=== PATIENT | male | born 1935 | race Caucasian/White ===

== ENCOUNTER 2017-04-22 00:16 | Day surgery (SDC) | payer MEDICARE, BC ==
[~2017-04-22 00:16] MED LIST: ALBU3IS INH; ASPI81CH PT; BISA10S PR; Docu Liqui50 MG/5 ML PT; Duoneb 2.5-0.5 M3 ML INH; Lotrel 10-20 M1 EACH PO; METO25 PT; PANT40 PO; Pravachol40 MG PO; TAMS.4ER PO
[2017-04-22] MEDS ORDERED: DOXA2 PT (12:11)
[2017-04-22] MEDS ORDERED: Amlodipine-Ben1 EAC1 PT (12:13)
[2017-04-22] MEDS ORDERED: Pravachol40 MG PT (12:14)
[2017-04-22] MEDS ORDERED: Zantac150 MG PT (12:16)
== END 2017-04-22 11:55 | disposition home or self-care (01) ==
LOC: ATC 00:16
DX: C61 Malignant neoplasm of prostate (principal); R33.9 Retention of urine, unspecified; I10 Essential (primary) hypertension; E78.5 Hyperlipidemia, unspecified; C32.9 Malignant neoplasm of larynx, unspecified
CPT/HCPCS: 51702; J1580

== ENCOUNTER 2017-05-23 10:00 | Day surgery (SDC) | payer MEDICARE, BC ==
[~2017-05-23 10:00] MED LIST changes: +Amlodipine-Ben1 EAC1 PT; +DOXA2 PT; +Pravachol40 MG PT; +Zantac150 MG PT
== END 2017-05-23 11:00 | disposition home or self-care (01) ==
LOC: ATC 10:00
DX: R33.9 Retention of urine, unspecified (principal); I10 Essential (primary) hypertension; E78.5 Hyperlipidemia, unspecified; I25.10 Atherosclerotic heart disease of native coronary artery without angina pectoris; C61 Malignant neoplasm of prostate; C32.9 Malignant neoplasm of larynx, unspecified
CPT/HCPCS: 51702

== ENCOUNTER → 2017-05-27 | Outpatient (CLI) | payer MEDICARE, BC | END | disposition home or self-care (01) | LOC: LAB 15:18 → LAB SHORT 15:18 | DX: Z48.813 Encounter for surgical aftercare following surgery on the respiratory system (principal); Z93.0 Tracheostomy status | CPT/HCPCS: 87070 ==

== ENCOUNTER 2017-06-19 00:02 | Emergency (ER) | payer MEDICARE, BC ==
[~2017-06-19] VITALS: Ht 182.9 cm; Wt 90.7 kg
[2017-06-19 00:22] LABS: BASOPHILS ABSOLUTE AUTO 0.03 K/mm3 (0.00-0.23); BASOPHILS PERCENT AUTO 0 % (0-2); EOSINOPHILS ABSOLUTE AUTO 0.08 K/mm3 (0.00-0.68); EOSINOPHILS PERCENT AUTO 1 % (0-6); Hematocrit 33.8 % (37.0-53.0); Hemoglobin 10.6 g/dL (13.5-17.5); IMMATURE GRAN ABSOLUTE AUTO 0.08 K/mm3 (0.00-0.10); IMMATURE GRAN PERCENT AUTO 1 % (0-1); LYMPHOCYTES ABSOLUTE AUTO 0.69 K/mm3 (0.84-5.20); LYMPHOCYTES PERCENT AUTO 8 % (21-46); MONOCYTES ABSOLUTE AUTO 1.06 K/mm3 (0.16-1.47); MONOCYTES PERCENT AUTO 12 % (4-13); Mean Corpuscular HGB Conc 31.4 g/dL (31.5-36.5); Mean Corpuscular Volume 86 fL (80-100); Mean Platelet Volume 8.6 fL (9.1-12.4); NEUTROPHILS ABSOLUTE AUTO 7.22 K/mm3 (1.96-9.15); NEUTROPHILS PERCENT AUTO 79 % (41-73); Platelet Count 300 K/mm3 (150-400); RDW Coefficient Variation 17.3 % (11.7-14.2); RDW Standard Deviation 54.3 fL (35.1-46.3); Red Blood Cell Count 3.92 M/mm3 (4.30-5.90); White Blood Cell Count 9.16 K/mm3 (4.00-11.30)
[2017-06-19 00:42] LABS: Alanine Aminotransfer (ALT/SGP 29 U/L (12-78); Albumin, Blood 2.7 g/dL (3.4-5.0); Albumin/Globulin Ratio 0.6 (0.8-1.8); Alk Phos 82 U/L (50-136); Anion Gap 7 mmol/L (6-16); Aspartate Aminotrans (AST/SGOT 21 U/L (12-37); Bilirubin, Total 0.3 mg/dL (0.1-1.0); Blood Urea Nitrogen 20 mg/dL (8-24); Bun/Creatinine Ratio 31.5 (12.0-20.0); CO2, Blood 32 mmol/L (21-32); Calcium, Blood 9.1 mg/dL (8.5-10.1); Chloride, Blood 95 mmol/L (98-108); Creatinine, Blood 0.64 mg/dL (0.60-1.20); Globulin, Blood 4.8 g/dL (2.2-4.0); Glomerular Filtration Rate >60 (60-); Glucose, Blood 144 mg/dL (70-99); Potassium, Blood 3.9 mmol/L (3.5-5.5); Sodium, Blood 134 mmol/L (136-145); Total Protein, Blood 7.5 g/dL (6.4-8.2); Troponin I <0.015 ng/mL (0.000-0.040)
== END 2017-06-19 02:05 | disposition home or self-care (01) ==
LOC: ER 00:02
PROVIDERS: Emergency Medicine
DX: J95.03 Malfunction of tracheostomy stoma (principal); Z90.02 Acquired absence of larynx; Z79.899 Other long term (current) drug therapy; Z79.82 Long term (current) use of aspirin; Z87.891 Personal history of nicotine dependence
CPT/HCPCS: 31720; 36415; 71046; 80053; 84484; 85025; 94640; 96374; 99283; J2930

== ENCOUNTER 2017-06-23 00:10 | Day surgery (SDC) | payer MEDICARE, BC | END 2017-06-23 11:50 | disposition home or self-care (01) | LOC: ATC 00:10 | DX: R33.9 Retention of urine, unspecified (principal); E78.5 Hyperlipidemia, unspecified; I10 Essential (primary) hypertension; I25.10 Atherosclerotic heart disease of native coronary artery without angina pectoris; C32.9 Malignant neoplasm of larynx, unspecified | CPT/HCPCS: 51702 ==

== ENCOUNTER 2017-07-12 10:18 | Observation (INO) | payer MEDICARE, BC ==
[~2017-07-12] VITALS: Ht 177.8 cm; Wt 86.9 kg
[2017-07-12] MEDS ORDERED: AMLO5 PO (10:56)
[2017-07-12] MEDS ORDERED: FURO20 PO (10:58)
[2017-07-12] MEDS ORDERED: POTA20PAC (10:58)
[2017-07-12] MEDS ORDERED: LEVSOD125 PO (10:58)
[2017-07-12 11:31] LABS: BASOPHILS ABSOLUTE AUTO 0.02 K/mm3 (0.00-0.23); BASOPHILS PERCENT AUTO 0 % (0-2); EOSINOPHILS ABSOLUTE AUTO 0.08 K/mm3 (0.00-0.68); EOSINOPHILS PERCENT AUTO 1 % (0-6); Hematocrit 27.9 % (37.0-53.0); Hemoglobin 8.8 g/dL (13.5-17.5); IMMATURE GRAN ABSOLUTE AUTO 0.04 K/mm3 (0.00-0.10); IMMATURE GRAN PERCENT AUTO 1 % (0-1); LYMPHOCYTES PERCENT AUTO 6 % (21-46); MONOCYTES ABSOLUTE AUTO 1.07 K/mm3 (0.16-1.47); MONOCYTES PERCENT AUTO 14 % (4-13); Mean Corpuscular HGB 27.3 pg (26.0-34.0); Mean Corpuscular HGB Conc 31.5 g/dL (31.5-36.5); Mean Corpuscular Volume 87 fL (80-100); NEUTROPHILS ABSOLUTE AUTO 6.22 K/mm3 (1.96-9.15); NEUTROPHILS PERCENT AUTO 78 % (41-73); Platelet Count 373 K/mm3 (150-400); RDW Coefficient Variation 18.3 % (11.7-14.2); RDW Standard Deviation 57.3 fL (35.1-46.3); Red Blood Cell Count 3.22 M/mm3 (4.30-5.90); White Blood Cell Count 7.93 K/mm3 (4.00-11.30)
[2017-07-12 11:48] LABS: Alanine Aminotransfer (ALT/SGP 32 U/L (12-78); Albumin, Blood 2.2 g/dL (3.4-5.0); Albumin/Globulin Ratio 0.5 (0.8-1.8); Alk Phos 88 U/L (50-136); Anion Gap 5 mmol/L (6-16); Aspartate Aminotrans (AST/SGOT 24 U/L (12-37); Bilirubin, Total 0.3 mg/dL (0.1-1.0); Blood Urea Nitrogen 18 mg/dL (8-24); Bun/Creatinine Ratio 30.3 (12.0-20.0); CO2, Blood 31 mmol/L (21-32); Calcium, Blood 8.4 mg/dL (8.5-10.1); Chloride, Blood 96 mmol/L (98-108); Creatinine, Blood 0.59 mg/dL (0.60-1.20); Globulin, Blood 4.5 g/dL (2.2-4.0); Glomerular Filtration Rate >60 (60-); Glucose, Blood 101 mg/dL (70-99); Magnesium, Blood 2.4 mg/dL (1.6-2.4); Potassium, Blood 4.2 mmol/L (3.5-5.5); Sodium, Blood 132 mmol/L (136-145); Total Protein, Blood 6.7 g/dL (6.4-8.2); Troponin I <0.015 ng/mL (0.000-0.040)
[2017-07-12 11:53] LABS: Thyroid Stimulating Hormone 0.739 uIU/mL (0.360-4.800)
[2017-07-12 12:06] LABS: Source, Urine Catheter
[2017-07-12 12:19] LABS: Bilirubin, Urine Neg (Neg); Blood, Urine 2+ (Neg); Glucose Qualitative, Urine Neg (Neg); Ketones, Urine Neg (Neg); Leukocyte Esterase, Urine 2+ (Neg); Nitrite, Urine Neg (Neg); Protein, Urine Neg (Neg); Specific Gravity, Urine 1.015 (1.003-1.022); Urobilinogen, Urine NORM (Normal)
[2017-07-12 12:38] LABS: Appearance, Urine Clear (Clear); Color, Urine Pale Yellow (P-Yellow)
[2017-07-12 12:42] LABS: Bacteria Not Seen /hpf; Red Blood Cells, Urine 0-2 /hpf (0-2); Squamous Epithelial Cells Not Seen /hpf (Few)
[2017-07-13 05:13] LABS: BASOPHILS ABSOLUTE AUTO 0.01 K/mm3 (0.00-0.23); BASOPHILS PERCENT AUTO 0 % (0-2); EOSINOPHILS PERCENT AUTO 2 % (0-6); Hematocrit 28.1 % (37.0-53.0); Hemoglobin 8.7 g/dL (13.5-17.5); IMMATURE GRAN ABSOLUTE AUTO 0.02 K/mm3 (0.00-0.10); IMMATURE GRAN PERCENT AUTO 0 % (0-1); LYMPHOCYTES ABSOLUTE AUTO 0.39 K/mm3 (0.84-5.20); LYMPHOCYTES PERCENT AUTO 6 % (21-46); MONOCYTES ABSOLUTE AUTO 0.76 K/mm3 (0.16-1.47); MONOCYTES PERCENT AUTO 12 % (4-13); Mean Corpuscular HGB 26.4 pg (26.0-34.0); Mean Corpuscular Volume 85 fL (80-100); Mean Platelet Volume 9.1 fL (9.1-12.4); NEUTROPHILS ABSOLUTE AUTO 5.18 K/mm3 (1.96-9.15); NEUTROPHILS PERCENT AUTO 80 % (41-73); Platelet Count 334 K/mm3 (150-400); RDW Coefficient Variation 18.1 % (11.7-14.2); RDW Standard Deviation 55.7 fL (35.1-46.3); Red Blood Cell Count 3.29 M/mm3 (4.30-5.90); White Blood Cell Count 6.46 K/mm3 (4.00-11.30)
[2017-07-13 05:29] LABS: Anion Gap 7 mmol/L (6-16); Blood Urea Nitrogen 14 mg/dL (8-24); Bun/Creatinine Ratio 27.1 (12.0-20.0); CO2, Blood 28 mmol/L (21-32); Calcium, Blood 8.2 mg/dL (8.5-10.1); Chloride, Blood 99 mmol/L (98-108); Creatinine, Blood 0.52 mg/dL (0.60-1.20); Glomerular Filtration Rate >60 (60-); Glucose, Blood 99 mg/dL (70-99); Potassium, Blood 4.3 mmol/L (3.5-5.5); Sodium, Blood 134 mmol/L (136-145)
[2017-07-14 04:43] LABS: BASOPHILS ABSOLUTE AUTO 0.01 K/mm3 (0.00-0.23); BASOPHILS PERCENT AUTO 0 % (0-2); EOSINOPHILS ABSOLUTE AUTO 0.09 K/mm3 (0.00-0.68); EOSINOPHILS PERCENT AUTO 2 % (0-6); Hematocrit 26.8 % (37.0-53.0); Hemoglobin 8.3 g/dL (13.5-17.5); IMMATURE GRAN ABSOLUTE AUTO 0.01 K/mm3 (0.00-0.10); IMMATURE GRAN PERCENT AUTO 0 % (0-1); LYMPHOCYTES ABSOLUTE AUTO 0.31 K/mm3 (0.84-5.20); LYMPHOCYTES PERCENT AUTO 6 % (21-46); MONOCYTES ABSOLUTE AUTO 0.61 K/mm3 (0.16-1.47); MONOCYTES PERCENT AUTO 13 % (4-13); Mean Corpuscular HGB 26.3 pg (26.0-34.0); Mean Corpuscular Volume 85 fL (80-100); NEUTROPHILS ABSOLUTE AUTO 3.83 K/mm3 (1.96-9.15); NEUTROPHILS PERCENT AUTO 79 % (41-73); Platelet Count 306 K/mm3 (150-400); RDW Standard Deviation 55.7 fL (35.1-46.3); Red Blood Cell Count 3.16 M/mm3 (4.30-5.90); White Blood Cell Count 4.86 K/mm3 (4.00-11.30)
[2017-07-14 05:00] LABS: Anion Gap 8 mmol/L (6-16); Blood Urea Nitrogen 14 mg/dL (8-24); Bun/Creatinine Ratio 27.6 (12.0-20.0); CO2, Blood 27 mmol/L (21-32); Calcium, Blood 8.2 mg/dL (8.5-10.1); Chloride, Blood 101 mmol/L (98-108); Creatinine, Blood 0.51 mg/dL (0.60-1.20); Glomerular Filtration Rate >60 (60-); Glucose, Blood 105 mg/dL (70-99); Potassium, Blood 4.1 mmol/L (3.5-5.5); Sodium, Blood 136 mmol/L (136-145)
[2017-07-14] MEDS ORDERED: Vitamin C100 M1 PT (10:46)
[2017-07-14] MEDS ORDERED: FERSU220EL PT (10:47)
[2017-07-14] MEDS ORDERED: CEPH250SUA PT (10:48)
== END 2017-07-14 11:13 | disposition home health service (06) ==
LOC: ER 10:18 → MEDS 10:20 → ER 13:42 → MEDS 13:42 → ER 07-13 10:20 → MEDS 07-13 15:32 → ENPENDDIS 07-14 10:21 → MEDS 07-14 11:13
PROVIDERS: Emergency Medicine; Family Medicine
DX: R53.1 Weakness (principal); R82.90 Unspecified abnormal findings in urine; N39.0 Urinary tract infection, site not specified; E86.0 Dehydration; I10 Essential (primary) hypertension; I25.2 Old myocardial infarction; N40.0 Benign prostatic hyperplasia without lower urinary tract symptoms; E03.9 Hypothyroidism, unspecified; E78.5 Hyperlipidemia, unspecified; E87.1 Hypo-osmolality and hyponatremia; C32.9 Malignant neoplasm of larynx, unspecified; D64.9 Anemia, unspecified; Z79.01 Long term (current) use of anticoagulants; Z85.46 Personal history of malignant neoplasm of prostate; Z90.02 Acquired absence of larynx; Z87.891 Personal history of nicotine dependence; Z79.899 Other long term (current) drug therapy; Z93.0 Tracheostomy status
CPT/HCPCS: 31720; 36415; 51702; 71046; 80048; 80053; 81001; 83735; 84443; 84484; 85025; 87077; 87086; 87186; 88305; 93005; 93010; 96361; 96372; 96374; 97110; 97116; 97162; 97530; 99285; G0378; G8978; G8979; J0696; J1650; J7030

== ENCOUNTER 2017-07-22 13:03 | Day surgery (SDC) | payer MEDICARE, BC ==
[~2017-07-22 13:03] MED LIST changes: +AMLO5 PO; +CEPH250SUA PT; +FERSU220EL PT; +FURO20 PO; +LEVSOD125 PO; +POTA20PAC; +Vitamin C100 M1 PT
== END 2017-07-22 17:02 | disposition home or self-care (01) ==
LOC: WOUND 13:03
DX: Z48.01 Encounter for change or removal of surgical wound dressing (principal); T86.829 Unspecified complication of skin graft (allograft) (autograft); C32.9 Malignant neoplasm of larynx, unspecified; D64.9 Anemia, unspecified; C61 Malignant neoplasm of prostate; Z93.0 Tracheostomy status; I25.10 Atherosclerotic heart disease of native coronary artery without angina pectoris; I10 Essential (primary) hypertension; Z87.891 Personal history of nicotine dependence
CPT/HCPCS: 36415; 82607; 82728; 82746; 83540; 83550; 84134; 84153; 85025; G0463

== ENCOUNTER 2017-07-24 18:42 | Inpatient (IN) | payer MEDICARE, BC ==
[~2017-07-24] VITALS: Ht 180.3 cm; Wt 90.0 kg
[2017-07-24 19:10] LABS: Calcium, Ionized (POC) 1.05 mmol/L (1.10-1.46); Chloride (POC) 90 mmol/L (98-108); Creatinine (POC) 0.7 mg/dL (0.8-1.3); Glucose (ISTAT POC) 119 mg/dL (70-99); Hemoglobin (POC) 7.5 g/dL (13.5-17.5); Potassium (POC) 4.5 mmol/L (3.5-5.5); Sodium (POC) 128 mmol/L (135-148); Total CO2 (POC) 28 mmol/L (21-32)
[2017-07-24 19:12] LABS: BASOPHILS ABSOLUTE AUTO 0.01 K/mm3 (0.00-0.23); BASOPHILS PERCENT AUTO 0 % (0-2); EOSINOPHILS ABSOLUTE AUTO 0.04 K/mm3 (0.00-0.68); EOSINOPHILS PERCENT AUTO 1 % (0-6); Hematocrit 24.8 % (37.0-53.0); Hemoglobin 7.9 g/dL (13.5-17.5); IMMATURE GRAN ABSOLUTE AUTO 0.02 K/mm3 (0.00-0.10); IMMATURE GRAN PERCENT AUTO 0 % (0-1); LYMPHOCYTES ABSOLUTE AUTO 0.64 K/mm3 (0.84-5.20); LYMPHOCYTES PERCENT AUTO 9 % (21-46); MONOCYTES ABSOLUTE AUTO 1.29 K/mm3 (0.16-1.47); MONOCYTES PERCENT AUTO 18 % (4-13); Mean Corpuscular HGB 27.1 pg (26.0-34.0); Mean Corpuscular HGB Conc 31.9 g/dL (31.5-36.5); Mean Corpuscular Volume 85 fL (80-100); Mean Platelet Volume 8.7 fL (9.1-12.4); NEUTROPHILS ABSOLUTE AUTO 5.02 K/mm3 (1.96-9.15); NEUTROPHILS PERCENT AUTO 72 % (41-73); Platelet Count 305 K/mm3 (150-400); RDW Coefficient Variation 17.6 % (11.7-14.2); RDW Standard Deviation 54.6 fL (35.1-46.3); Red Blood Cell Count 2.91 M/mm3 (4.30-5.90); White Blood Cell Count 7.02 K/mm3 (4.00-11.30)
[2017-07-24 19:27] LABS: International Normalized Ratio 1.04; Prothrombin Time Results 10.7 Sec (9.7-11.5)
[2017-07-24 19:28] LABS: Alanine Aminotransfer (ALT/SGP 24 U/L (12-78); Albumin, Blood 2.2 g/dL (3.4-5.0); Albumin/Globulin Ratio 0.6 (0.8-1.8); Alk Phos 76 U/L (50-136); Anion Gap 9 mmol/L (6-16); Aspartate Aminotrans (AST/SGOT 16 U/L (12-37); Bilirubin, Total 0.3 mg/dL (0.1-1.0); Blood Urea Nitrogen 23 mg/dL (8-24); Bun/Creatinine Ratio 36.8 (12.0-20.0); CO2, Blood 29 mmol/L (21-32); Calcium, Blood 8.2 mg/dL (8.5-10.1); Chloride, Blood 94 mmol/L (98-108); Creatinine, Blood 0.63 mg/dL (0.60-1.20); Globulin, Blood 3.9 g/dL (2.2-4.0); Glomerular Filtration Rate >60 (60-); Glucose, Blood 116 mg/dL (70-99); Potassium, Blood 4.5 mmol/L (3.5-5.5); Sodium, Blood 132 mmol/L (136-145); Total Protein, Blood 6.1 g/dL (6.4-8.2)
[2017-07-25 01:26] LABS: CPK Creatine Kinase 34 U/L (39-308); Troponin I <0.015 ng/mL (0.000-0.040)
[2017-07-25 01:28] LABS: Creatine Kinase MB <0.5 ng/mL (0.0-3.6); Creatine Kinase MB Index Unable to Calculate (0.0-4.0)
[2017-07-25 01:40] LABS: Hematocrit 24.8 % (37.0-53.0); Hemoglobin 7.8 g/dL (13.5-17.5); Mean Corpuscular HGB 27.4 pg (26.0-34.0); Mean Corpuscular HGB Conc 31.5 g/dL (31.5-36.5); Mean Corpuscular Volume 87 fL (80-100); Mean Platelet Volume 9.2 fL (9.1-12.4); Platelet Count 338 K/mm3 (150-400); RDW Coefficient Variation 17.8 % (11.7-14.2); RDW Standard Deviation 56.5 fL (35.1-46.3); Red Blood Cell Count 2.85 M/mm3 (4.30-5.90); White Blood Cell Count 10.14 K/mm3 (4.00-11.30)
[2017-07-25 02:08] LABS: BAND PERCENT MAN 7 % (0-8); BASOPHILS PERCENT MAN 0 % (0-2); EOSINOPHILS PERCENT MAN 0 % (0-6); LYMPHOCYTES PERCENT MAN 5 % (21-46); METAMYELOCYTE PERCENT MAN 1 % (0-0); MONOCYTES PERCENT MAN 4 % (4-13); NEUTROPHILS ABSOLUTE MAN 9.12 K/mm3 (1.96-9.15); SEG NEUTROPHILS PERCENT MAN 83 % (41-73); TOTAL CELLS COUNTED 100
[2017-07-25 03:38] LABS: PCO2 Arterial 28.7 mmHg (35-45); PO2 Arterial 189 mmHg (80-100); pH Blood Arterial 7.54 (7.35-7.45)
[2017-07-25 05:43] LABS: Hematocrit 21.5 % (37.0-53.0); Hemoglobin 6.8 g/dL (13.5-17.5); Mean Corpuscular HGB 27.1 pg (26.0-34.0); Mean Corpuscular HGB Conc 31.6 g/dL (31.5-36.5); Mean Corpuscular Volume 86 fL (80-100); Mean Platelet Volume 8.8 fL (9.1-12.4); Platelet Count 247 K/mm3 (150-400); RDW Coefficient Variation 17.5 % (11.7-14.2); RDW Standard Deviation 55.5 fL (35.1-46.3); Red Blood Cell Count 2.51 M/mm3 (4.30-5.90); White Blood Cell Count 8.25 K/mm3 (4.00-11.30)
[2017-07-25 06:54] LABS: Alanine Aminotransfer (ALT/SGP 22 U/L (12-78); Albumin, Blood 1.9 g/dL (3.4-5.0); Albumin/Globulin Ratio 0.5 (0.8-1.8); Alk Phos 64 U/L (50-136); Anion Gap 12 mmol/L (6-16); Aspartate Aminotrans (AST/SGOT 17 U/L (12-37); Bilirubin, Total 0.3 mg/dL (0.1-1.0); Blood Urea Nitrogen 17 mg/dL (8-24); Bun/Creatinine Ratio 29.9 (12.0-20.0); CO2, Blood 23 mmol/L (21-32); Calcium, Blood 8.1 mg/dL (8.5-10.1); Chloride, Blood 101 mmol/L (98-108); Creatinine, Blood 0.57 mg/dL (0.60-1.20); Globulin, Blood 3.7 g/dL (2.2-4.0); Glomerular Filtration Rate >60 (60-); Glucose, Blood 165 mg/dL (70-99); Potassium, Blood 4.2 mmol/L (3.5-5.5); Sodium, Blood 136 mmol/L (136-145); Total Protein, Blood 5.6 g/dL (6.4-8.2)
[2017-07-25 09:18] LABS: Alanine Aminotransfer (ALT/SGP 20 U/L (12-78); Albumin, Blood 1.9 g/dL (3.4-5.0); Albumin/Globulin Ratio 0.5 (0.8-1.8); Alk Phos 68 U/L (50-136); Anion Gap 10 mmol/L (6-16); Aspartate Aminotrans (AST/SGOT 11 U/L (12-37); Bilirubin, Direct <0.1 mg/dL (0.0-0.3); Bilirubin, Indirect Unable to Calculate mg/dL (0.1-0.7); Bilirubin, Total 0.3 mg/dL (0.1-1.0); Blood Urea Nitrogen 15 mg/dL (8-24); Bun/Creatinine Ratio 26.3 (12.0-20.0); CO2, Blood 24 mmol/L (21-32); Calcium, Blood 8.1 mg/dL (8.5-10.1); Chloride, Blood 102 mmol/L (98-108); Creatinine, Blood 0.57 mg/dL (0.60-1.20); Globulin, Blood 3.8 g/dL (2.2-4.0); Glomerular Filtration Rate >60 (60-); Glucose, Blood 156 mg/dL (70-99); Phosphorus, Blood 2.4 mg/dL (2.5-4.9); Potassium, Blood 4.2 mmol/L (3.5-5.5); Sodium, Blood 136 mmol/L (136-145); Total Protein, Blood 5.7 g/dL (6.4-8.2); Troponin I <0.015 ng/mL (0.000-0.040)
[2017-07-25 12:12] LABS: Hematocrit 21.7 % (37.0-53.0)
[2017-07-25 16:04] LABS: Hematocrit 22.8 % (37.0-53.0); Hemoglobin 7.5 g/dL (13.5-17.5)
[2017-07-25 21:38] LABS: Hematocrit 24.6 % (37.0-53.0); Hemoglobin 8.2 g/dL (13.5-17.5)
== END 2017-07-25 23:05 | disposition short-term general hospital (02) | DRG 981 ==
LOC: ER 18:42 → ICUW 07-25 00:31
PROVIDERS: Emergency Medicine; Internal Medicine; Internal Medicine Critical Care Medicine; Otolaryngology
PROC: 0W338ZZ Control Bleeding in Oral Cavity and Throat, Via Natural or Artificial Opening Endoscopic (ICD-10-PCS; principal; 2017-07-25)
PROC: 0BJ18ZZ Inspection of Trachea, Via Natural or Artificial Opening Endoscopic (ICD-10-PCS; 2017-07-25)
PROC: 5A1935Z Respiratory Ventilation, Less than 24 Consecutive Hours (ICD-10-PCS; 2017-07-25)
PROC: 30233N1 Transfusion of Nonautologous Red Blood Cells into Peripheral Vein, Percutaneous Approach (ICD-10-PCS; 2017-07-25)
DX: R04.1 Hemorrhage from throat (principal); J96.00 Acute respiratory failure, unspecified whether with hypoxia or hypercapnia; I21.19 ST elevation (STEMI) myocardial infarction involving other coronary artery of inferior wall; I95.9 Hypotension, unspecified; I10 Essential (primary) hypertension; Z66 Do not resuscitate; C32.9 Malignant neoplasm of larynx, unspecified; I25.10 Atherosclerotic heart disease of native coronary artery without angina pectoris; D64.9 Anemia, unspecified; E78.5 Hyperlipidemia, unspecified; E78.00 Pure hypercholesterolemia, unspecified; I25.2 Old myocardial infarction; Z90.02 Acquired absence of larynx; Z93.0 Tracheostomy status; Z93.1 Gastrostomy status; Z85.46 Personal history of malignant neoplasm of prostate; Z87.891 Personal history of nicotine dependence; Z95.5 Presence of coronary angioplasty implant and graft; Z92.21 Personal history of antineoplastic chemotherapy; Z92.3 Personal history of irradiation; Z79.82 Long term (current) use of aspirin; Z79.899 Other long term (current) drug therapy
CPT/HCPCS: 31720; 36415; 36430; 36600; 70491; 80047; 80053; 82248; 82550; 82553; 82607; 82728; 82746; 82803; 82947; 83540; 83550; 84100; 84134; 84153; 84484; 85014; 85018; 85025; 85027; 85610; 86850; 86900; 86901; 86923; 93005; 93010; 93306; 94003; 96360; 99285; 99291; 99292; C9113; G0463; J1100; J2060; J2250; J2370; J2405; J3010; J7030; J7050; P9016; Q9967

== ENCOUNTER 2017-08-26 18:07 | Emergency (ER) | payer MEDICARE, BC ==
[~2017-08-26] VITALS: Ht 177.8 cm; Wt 86.6 kg
[2017-08-26 18:34] LABS: BASOPHILS ABSOLUTE AUTO 0.02 K/mm3 (0.00-0.23); BASOPHILS PERCENT AUTO 0 % (0-2); EOSINOPHILS ABSOLUTE AUTO 0.12 K/mm3 (0.00-0.68); EOSINOPHILS PERCENT AUTO 3 % (0-6); Hematocrit 27.6 % (37.0-53.0); Hemoglobin 8.7 g/dL (13.5-17.5); IMMATURE GRAN ABSOLUTE AUTO 0.01 K/mm3 (0.00-0.10); IMMATURE GRAN PERCENT AUTO 0 % (0-1); LYMPHOCYTES ABSOLUTE AUTO 0.47 K/mm3 (0.84-5.20); LYMPHOCYTES PERCENT AUTO 10 % (21-46); MONOCYTES ABSOLUTE AUTO 0.71 K/mm3 (0.16-1.47); MONOCYTES PERCENT AUTO 15 % (4-13); Mean Corpuscular HGB 29.3 pg (26.0-34.0); Mean Corpuscular HGB Conc 31.5 g/dL (31.5-36.5); Mean Corpuscular Volume 93 fL (80-100); NEUTROPHILS PERCENT AUTO 71 % (41-73); Platelet Count 233 K/mm3 (150-400); RDW Coefficient Variation 15.2 % (11.7-14.2); Red Blood Cell Count 2.97 M/mm3 (4.30-5.90); White Blood Cell Count 4.63 K/mm3 (4.00-11.30)
[2017-08-26 18:46] LABS: Alanine Aminotransfer (ALT/SGP 28 U/L (12-78); Albumin, Blood 2.4 g/dL (3.4-5.0); Albumin/Globulin Ratio 0.6 (0.8-1.8); Alk Phos 96 U/L (50-136); Anion Gap 8 mmol/L (6-16); Aspartate Aminotrans (AST/SGOT 22 U/L (12-37); Bilirubin, Total 0.4 mg/dL (0.1-1.0); Blood Urea Nitrogen 21 mg/dL (8-24); Bun/Creatinine Ratio 33.7 (12.0-20.0); CO2, Blood 30 mmol/L (21-32); Calcium, Blood 8.4 mg/dL (8.5-10.1); Chloride, Blood 94 mmol/L (98-108); Creatinine, Blood 0.62 mg/dL (0.60-1.20); Globulin, Blood 4.2 g/dL (2.2-4.0); Glomerular Filtration Rate >60 (60-); Glucose, Blood 118 mg/dL (70-99); Potassium, Blood 4.3 mmol/L (3.5-5.5); Sodium, Blood 132 mmol/L (136-145); Total Protein, Blood 6.6 g/dL (6.4-8.2)
== END 2017-08-26 22:20 | disposition short-term general hospital (02) ==
LOC: ER 18:07
PROVIDERS: Emergency Medicine
DX: J95.831 Postprocedural hemorrhage of a respiratory system organ or structure following other procedure (principal); I10 Essential (primary) hypertension; I25.2 Old myocardial infarction; Z79.899 Other long term (current) drug therapy; Z79.82 Long term (current) use of aspirin; Z87.891 Personal history of nicotine dependence
CPT/HCPCS: 70498; 80053; 85025; 86850; 86900; 86901; 93005; 93010; 99285-25; J3370; Q9967

== ENCOUNTER 2017-09-27 20:15 | Emergency (ER) | payer MEDICARE, BC ==
[~2017-09-27] VITALS: Ht 182.9 cm; Wt 88.0 kg
[2017-09-27 21:11] LABS: BASOPHILS ABSOLUTE AUTO 0.02 K/mm3 (0.00-0.23); BASOPHILS PERCENT AUTO 1 % (0-2); EOSINOPHILS ABSOLUTE AUTO 0.13 K/mm3 (0.00-0.68); EOSINOPHILS PERCENT AUTO 3 % (0-6); Hematocrit 31.5 % (37.0-53.0); Hemoglobin 10.1 g/dL (13.5-17.5); IMMATURE GRAN ABSOLUTE AUTO 0.02 K/mm3 (0.00-0.10); IMMATURE GRAN PERCENT AUTO 1 % (0-1); LYMPHOCYTES ABSOLUTE AUTO 0.38 K/mm3 (0.84-5.20); LYMPHOCYTES PERCENT AUTO 9 % (21-46); MONOCYTES ABSOLUTE AUTO 0.57 K/mm3 (0.16-1.47); MONOCYTES PERCENT AUTO 14 % (4-13); Mean Corpuscular HGB Conc 32.1 g/dL (31.5-36.5); Mean Corpuscular Volume 91 fL (80-100); Mean Platelet Volume 9.5 fL (9.1-12.4); NEUTROPHILS ABSOLUTE AUTO 3.03 K/mm3 (1.96-9.15); NEUTROPHILS PERCENT AUTO 73 % (41-73); Platelet Count 229 K/mm3 (150-400); RDW Coefficient Variation 14.6 % (11.7-14.2); RDW Standard Deviation 49.1 fL (35.1-46.3); Red Blood Cell Count 3.48 M/mm3 (4.30-5.90); White Blood Cell Count 4.15 K/mm3 (4.00-11.30)
[2017-09-27 21:28] LABS: Alanine Aminotransfer (ALT/SGP 62 U/L (12-78); Albumin, Blood 2.9 g/dL (3.4-5.0); Albumin/Globulin Ratio 0.7 (0.8-1.8); Alk Phos 84 U/L (50-136); Anion Gap 7 mmol/L (6-16); Aspartate Aminotrans (AST/SGOT 34 U/L (12-37); Bilirubin, Total 0.3 mg/dL (0.1-1.0); Blood Urea Nitrogen 25 mg/dL (8-24); Bun/Creatinine Ratio 44.1 (12.0-20.0); CO2, Blood 30 mmol/L (21-32); Calcium, Blood 8.2 mg/dL (8.5-10.1); Chloride, Blood 96 mmol/L (98-108); Creatinine, Blood 0.57 mg/dL (0.60-1.20); Globulin, Blood 4.3 g/dL (2.2-4.0); Glomerular Filtration Rate >60 (60-); Glucose, Blood 149 mg/dL (70-99); Sodium, Blood 133 mmol/L (136-145); Total Protein, Blood 7.2 g/dL (6.4-8.2); Troponin I <0.015 ng/mL (0.000-0.040)
[2017-09-27] MEDS ORDERED: CLOP75 (21:55)
[2017-09-27] MEDS ORDERED: ABAT250V (21:56)
== END 2017-09-28 00:35 | disposition short-term general hospital (02) ==
LOC: ER 20:15
PROVIDERS: Emergency Medicine
DX: J95.01 Hemorrhage from tracheostomy stoma (principal); I10 Essential (primary) hypertension; I25.2 Old myocardial infarction; Z79.82 Long term (current) use of aspirin; Z79.899 Other long term (current) drug therapy; Z87.891 Personal history of nicotine dependence; Z85.21 Personal history of malignant neoplasm of larynx
CPT/HCPCS: 36415; 71046; 80053; 84484; 85025; 96374; 99284-25; J0360

== ENCOUNTER → 2018-06-01 | Outpatient (CLI) | payer MEDICARE, BC ==
[~2018-06-01] MED LIST changes: +ABAT250V; +CLOP75
== END | disposition home or self-care (01) ==
LOC: LAB SHORT 07:35 → PLD 07:35
DX: R04.2 Hemoptysis (principal); R63.4 Abnormal weight loss
CPT/HCPCS: 88305; 88312